=== PATIENT | male | born 2000 | race Two or more races ===

== ENCOUNTER 2021-07-21 00:06 | Inpatient (IN) | payer MEDICAID, OTHER ==
[~2021-07-21] VITALS: Ht 165.1 cm; Wt 95.9 kg
[2021-07-21] MEDS ORDERED: diphenhdrAMINE HCL 50 MG/1 ML VL ONE (00:29)
[2021-07-21] MEDS ORDERED: LORazepam 2MG/ML-1ML VIAL ONE (00:29)
[2021-07-21] MEDS ORDERED: HALOPERIDOL LACTATE 5 MG/ML INJ VIAL ONE (00:30)
[2021-07-21 01:09] LABS: Basophils # (auto) 0.4 10 ^3/uL (0-0.2); Basophils % (auto) 1.5 % (0.0-2.0); Eosinophils # (auto) 0.1 10 ^3/uL (0-0.8); Eosinophils % (auto) 0.3 % (0.0-7.0); Hematocrit 48.5 % (41.0-53.0); Hemoglobin 15.4 g/dL (13.5-17.5); Lymphocytes # (auto) 4.5 10 ^3/uL (0.4-5.4); Lymphocytes % (auto) 18.8 % (10.0-50.0); Mean Corpuscular Hgb Conc. 31.8 g/dL (32.0-36.0); Monocytes # (auto) 1.7 10 ^3/uL (0-1.3); Monocytes % (auto) 7.1 % (0.0-12.0); Neutrophils # (auto) 17.5 10 ^3/uL (1.6-8.6); Neutrophils % (auto) 72.3 % (37.0-80.0); Nucleated Red Blood Cells % 0.1 %; Red Blood Cells 5.52 10^6/uL (4.5-5.90); Red Cell Distribution Width 14.2 % (11.8-14.3); White Blood Cell 24.2 10^3/uL (4.4-10.8)
[2021-07-21 01:26] LABS: Albumin 4.4 g/dL (3.4-5.0); Calcium 9.1 mg/dL (8.5-10.1); Magnesium 3.3 mg/dL (1.6-2.6); Potassium 4.2 mmol/L (3.5-5.1)
[2021-07-21 01:31] LABS: INR 0.96 (0.9-1.15); Partial Thromboplastin Time 25.4 sec (23.6-33.0)
[2021-07-21 01:34] LABS: BUN/Creatinine Ratio 8.1; Bilirubin, Total 0.2 mg/dL (0.2-1.0); Total Protein 9.1 g/dL (6.4-8.2)
[2021-07-21] MEDS ORDERED: SODIUM CHLORIDE 0.9% 2,000 ML IV ONE (01:45)
[2021-07-21] MEDS ORDERED: HALOPERIDOL LACTATE 5 MG/ML INJ VIAL IM ONE (01:45)
[2021-07-21] MEDS ORDERED: LORazepam 2MG/ML-1ML VIAL IV PRN ×2 (01:45→08:30)
[2021-07-21] MEDS ORDERED: LORazepam 2MG/ML-1ML VIAL IM ONE (01:45)
[2021-07-21] MEDS ORDERED: diphenhdrAMINE HCL 50 MG/1 ML VL IM ONE (01:45)
[2021-07-21 02:29] LABS: Amphetamine Screen, Urine NEGATIVE (NEGATIVE); Barbiturate Scree,Urine NEGATIVE (NEGATIVE); Benzodiazephine Screen, Urine NEGATIVE (NEGATIVE); Cannabinoid Screen, Urine POSITIVE (NEGATIVE); Cocaine Screen, Urine NEGATIVE (NEGATIVE); Opiate Scree,Urine NEGATIVE (NEGATIVE); Phencyclidine Screen, Urine NEGATIVE (NEGATIVE)
[2021-07-21 02:29] LABS: Blood Alcohol < 3.0 mg/dL (0-5)
[2021-07-21 02:33] LABS: Creatine Kinase IFCC 743 U/L (39-308)
[2021-07-21 02:36] LABS: Alcohol, Urine < 3.0 mg/dL (0-10)
[2021-07-21] MEDS ORDERED: KETAMINE 50mg/ML 10ml Vial (500mg/10ml) IM ONE (04:15)
[2021-07-21 05:51] LABS: Urine Bacteria NONE SEEN /hpf (None Seen); Urine Blood 1+ /uL (Negative); Urine Hyaline Cast FEW /lpf (0 - 2); Urine Specific Gravity 1.009 (1.001-1.035); Urine WBC 2 /hpf (0 - 3)
[2021-07-21] MEDS ORDERED: NITROGLYCERIN 0.4 MG SL TAB SL PRN (08:30)
[2021-07-21] MEDS ORDERED: MORPHINE SULFATE INJECTION 2 MG/ML SYRG IV PRN ×2 (08:30)
[2021-07-21] MEDS ORDERED: ONDANSETRON HCL 4 MG/2 ML VIAL IV PRN (08:30)
[2021-07-21] MEDS ORDERED: DOCUSATE SOD 100 MG CAP PO PRN (08:30)
[2021-07-21] MEDS ORDERED: ACETAMINOPHEN 325 MG TAB PO PRN (08:30)
[2021-07-21] MEDS ORDERED: HYDROcodone-ACET 5/325MG TAB PO PRN (08:30)
[2021-07-21] MEDS ORDERED: LORazepam 0.5 MG TAB PO PRN (08:30)
[2021-07-21] MEDS ORDERED: ASPirin 325 MG TAB PO ONE (08:45)
[2021-07-21] MEDS: SODIUM CHLORIDE 0.9% 1,000 ML IV SCH ×2 (10:17→16:17)
[2021-07-21] MEDS: cefTRIAXone 1GM/50ML D5W 50 ML IV SCH (10:17)
[2021-07-21 23:00] VITALS: BP 130/79
[2021-07-22 00:45] VITALS: BP 130/79
[2021-07-22] MEDS: SODIUM CHLORIDE 0.9% 1,000 ML IV SCH ×5 (00:53→21:21)
[2021-07-22] MEDS ORDERED: ALBUAER3 IN (04:26)
[2021-07-22 05:00] VITALS: BP 130/76
[2021-07-22 05:16] LABS: Basophils # (auto) 0 10 ^3/uL (0-0.2); Basophils % (auto) 0.3 % (0.0-2.0); Eosinophils # (auto) 0 10 ^3/uL (0-0.8); Eosinophils % (auto) 0.1 % (0.0-7.0); Hematocrit 41.5 % (41.0-53.0); Hemoglobin 13.6 g/dL (13.5-17.5); Lymphocytes # (auto) 2.8 10 ^3/uL (0.4-5.4); Lymphocytes % (auto) 22.2 % (10.0-50.0); Mean Corpuscular Hgb Conc. 32.8 g/dL (32.0-36.0); Mean Corpuscular Volume 85.3 fL (80.0-100.0); Monocytes # (auto) 1.5 10 ^3/uL (0-1.3); Monocytes % (auto) 11.9 % (0.0-12.0); Neutrophils # (auto) 8.4 10 ^3/uL (1.6-8.6); Neutrophils % (auto) 65.5 % (37.0-80.0); Nucleated Red Blood Cells % 0.1 %; Red Blood Cells 4.86 10^6/uL (4.5-5.90); Red Cell Distribution Width 14.3 % (11.8-14.3); White Blood Cell 12.8 10^3/uL (4.4-10.8)
[2021-07-22 05:33] LABS: Albumin 3.7 g/dL (3.4-5.0); Calcium 8.7 mg/dL (8.5-10.1); Potassium 3.8 mmol/L (3.5-5.1)
[2021-07-22 06:02] LABS: BUN/Creatinine Ratio 6.9; Bilirubin, Total 0.5 mg/dL (0.2-1.0); Total Protein 7.3 g/dL (6.4-8.2)
[2021-07-22 08:30] VITALS: BP 137/84
[2021-07-22] MEDS: cefTRIAXone 1GM/50ML D5W 50 ML IV SCH (09:19)
[2021-07-22 12:30] VITALS: BP 140/73
[2021-07-22 17:00] VITALS: BP 130/84
[2021-07-22 20:14] LABS: Protein, Urine 15.7 mg/dL (0.0-11.9)
[2021-07-22 22:00] VITALS: BP 134/83
[2021-07-23] MEDS: SODIUM CHLORIDE 0.9% 1,000 ML IV SCH ×3 (00:30→10:30)
[2021-07-23 05:00] VITALS: BP 121/70
[2021-07-23 05:48] LABS: Basophils # (auto) 0.1 10 ^3/uL (0-0.2); Basophils % (auto) 0.5 % (0.0-2.0); Eosinophils # (auto) 0 10 ^3/uL (0-0.8); Eosinophils % (auto) 0.4 % (0.0-7.0); Hematocrit 42.1 % (41.0-53.0); Lymphocytes # (auto) 3.1 10 ^3/uL (0.4-5.4); Lymphocytes % (auto) 27.5 % (10.0-50.0); Mean Corpuscular Hemoglobin 28.4 pg (28.0-32.0); Mean Corpuscular Hgb Conc. 33.3 g/dL (32.0-36.0); Mean Corpuscular Volume 85.4 fL (80.0-100.0); Monocytes # (auto) 1.1 10 ^3/uL (0-1.3); Neutrophils % (auto) 61.6 % (37.0-80.0); Red Blood Cells 4.93 10^6/uL (4.5-5.90); Red Cell Distribution Width 14.1 % (11.8-14.3); White Blood Cell 11.3 10^3/uL (4.4-10.8)
[2021-07-23 06:06] LABS: Albumin 3.5 g/dL (3.4-5.0); Calcium 8.7 mg/dL (8.5-10.1)
[2021-07-23 06:09] LABS: BUN/Creatinine Ratio 6.8
[2021-07-23 06:11] LABS: Bilirubin, Total 0.4 mg/dL (0.2-1.0); Phosphorus 3.6 mg/dL (2.5-4.90)
[2021-07-23 08:00] VITALS: BP 133/78
[2021-07-23 08:53] VITALS: BP 133/78
[2021-07-23] MEDS: cefTRIAXone 1GM/50ML D5W 50 ML IV SCH (10:02)
[2021-07-23 12:51] VITALS: BP 139/91
[2021-07-23 14:55] VITALS: BP 139/91
== END 2021-07-23 17:00 | disposition home or self-care (01) | DRG 720 ==
LOC: EDBD 00:06 → ER 00:09 → TELE 08:16 → TELE-CENTR 23:29
PROVIDERS: ADMIT Family Medicine; ATTEND Family Medicine
DX: A41.9 Sepsis, unspecified organism (principal); N17.9 Acute kidney failure, unspecified; M62.82 Rhabdomyolysis; E66.9 Obesity, unspecified; E86.0 Dehydration; F12.10 Cannabis abuse, uncomplicated; Z20.822 Contact with and (suspected) exposure to COVID-19; H91.90 Unspecified hearing loss, unspecified ear; J45.909 Unspecified asthma, uncomplicated; Z82.49 Family history of ischemic heart disease and other diseases of the circulatory system; Z78.1 Physical restraint status; Z82.5 Family history of asthma and other chronic lower respiratory diseases; Z83.3 Family history of diabetes mellitus; Z71.51 Drug abuse counseling and surveillance of drug abuser; Z68.34 Body mass index [BMI] 34.0-34.9, adult; R41.82 Altered mental status, unspecified
CPT/HCPCS: 36415; 70450; 71045; 80053; 80307; 80320; 81001; 82550; 82570; 83735; 83880; 84100; 84156; 84300; 84443; 84484; 85025; 85610; 85730; 87040; 87086; 87426; 93005; 93306; 96365; 96372; 96375; G0378; J0696